=== PATIENT | male | born 2000 ===

== ENCOUNTER 2024-07-08 10:28 | Outpatient (CLI) | payer OTHER ==
[2024-07-08 11:01] LABS: PH,URINE 5.5 (5.0-8.0); URINE APPEARANCE Clear; URINE BILIRRUBIN Negative (NEGATIVE); URINE BLOOD Negative; URINE COLOR Yellow; URINE GLUCOSE Negative (NEGATIVE); URINE KETONE Negative (NEGATIVE); URINE LEUKOCYTE Negative; URINE NITRATE Negative; URINE PROTEIN Negative (NEGATIVE)
[2024-07-08 11:05] LABS: URINE BACTERIA 127.2 uL (0.0-1933); URINE EPITHELIAL CELLS 8.7 uL (0.0-38.8); URINE WBC 9.1 uL (0.0-23.2)
[2024-07-08 11:14] LABS: HEMATOCRIT 47.9 % (39.0-48.0); HEMOGLOBIN 16.4 g/dL (13-16.00); MEAN CELL VOLUME 83.8 fL (80.0-100.00); MEAN CORPUSCULAR HEMOGLOBIN 28.6 pg (27.00-32.0); MEAN CORPUSCULAR HGB CONC 34.2 g/dl (32.0-36.0); PLATELET COUNT 263 K/uL (150-450); RED BLOOD COUNT 5.72 M/uL (4.00-6.00); RED CELL DISTRIBUTION WIDTH 12.6 % (11.5-14.5)
[2024-07-08 11:24] LABS: INR 1.06; PARTIAL THROMBOPLASTIN TIME 28.6 SECONDS (22.0-34.0); PROTHROMBIN TIME 11.5 SECONDS (9.0-11.5)
[2024-07-08 12:15] LABS: ALBUMIN 4.1 gm/dL (3.4-5.0); BILIRUBIN TOTAL 0.98 mg/dL (0.3-1.2); CALCIUM 9.3 mg/dL (8.5-10.1); CREATININE SERUM 0.75 mg/dL (0.70-1.30); GFR 130.23; GLOBULINA 3.3 G/DL (2.4-3.5); POTASSIUM 4.11 mEq/L (3.5-5.1); TOTAL PROTEIN 7.4 gm/dL (6.4-8.2)
== END 2024-07-08 15:00 | disposition home or self-care (01) ==
LOC: LAB 10:28
PROVIDERS: ATTEND Orthopaedic Surgery Hand Surgery
DX: E11.9 Type 2 diabetes mellitus without complications (principal); E78.00 Pure hypercholesterolemia, unspecified; E78.3 Hyperchylomicronemia; D65 Disseminated intravascular coagulation [defibrination syndrome]; D66 Hereditary factor VIII deficiency; N39.0 Urinary tract infection, site not specified

== ENCOUNTER 2024-07-11 07:16 | Day surgery (SDC) | payer OTHER ==
[2024-07-11] MEDS ORDERED: CEFAZOLIN SODIUM 1,000 MG VIAL ONE (11:47)
[2024-07-11] MEDS ORDERED: CEFAZOLIN SODIUM 1,000 MG VIAL IV ONE (14:15)
[2024-07-11] MEDS ORDERED: SUGAMMADEX SODIUM 200 MG/2 ML VIAL IV ONE (14:43)
== END 2024-07-11 17:25 | disposition home or self-care (01) ==
LOC: CIR.AMB 07:16
PROVIDERS: ATTEND Orthopaedic Surgery Hand Surgery
DX: S62.323A Displaced fracture of shaft of third metacarpal bone, left hand, initial encounter for closed fracture (principal)